=== PATIENT | female | born 1950 | race Caucasian/White ===

== ENCOUNTER 2024-01-16 06:16 | Observation (INO) ==
[2024-01-16] MEDS: NOZIN NASAL SANITIZER TP ONE (06:35)
[2024-01-16] MEDS: LR 1,000 ML IV 1,000 ML IV ONE (06:36)
[2024-01-16 07:11] VITALS: BMI 23.0
[2024-01-16 07:15] LABS: HEMOGLOBIN 12.4 g/dL (12.0-16.0)
[2024-01-16 07:18] LABS: BASOPHILS # (AUTO) 0.1 X10^3/uL (0.0-0.1); BASOPHILS % (AUTO) 1.5 % (0.2-1.0); EOSINOPHILS # (AUTO) 0.3 x10^3/uL (0.0-0.2); EOSINOPHILS % (AUTO) 3.4 % (0.9-2.9); HEMATOCRIT 36.3 % (36.0-47.0); LYMPHOCYTES # (AUTO) 2.1 X10^3/uL (1.3-2.9); LYMPHOCYTES % (AUTO) 25.7 % (21.0-51.0); MEAN CORPUSCULAR HEMOGLOBIN 30.8 pg (27.0-34.0); MEAN CORPUSCULAR HGB CONC 34.1 g/dL (33.0-35.0); MEAN CORPUSCULAR VOLUME 90.1 fL (80.0-100.0); MEAN PLATELET VOLUME 8.5 fL (7.4-11.0); MONOCYTES # (AUTO) 0.6 x10^3/uL (0.3-0.8); MONOCYTES % (AUTO) 7.5 % (0.0-13.0); NEUTROPHILS % (AUTO) 61.9 % (42.0-75.0); PLATELET COUNT 436 X10^3/uL (150.0-450.0); RED BLOOD COUNT 4.03 X10^6/uL (3.5-5.4); RED CELL DISTRIBUTION WIDTH 14.4 % (11.6-16.5); WHITE BLOOD COUNT 8.1 X10^3/uL (3.6-10.0)
[2024-01-16 07:22] LABS: ALANINE AMINOTRANSFERASE 15 Units/L (12-78); ALBUMIN 3.5 g/dL (3.4-5.0); ALKALINE PHOSPHATASE 106 Units/L (46-116); ASPARTATE AMINO TRANSFERASE 17 Units/L (15-37); BLOOD UREA NITROGEN 4 mg/dL (7-18); CARBON DIOXIDE 27.2 mmol/L (21-32); CHLORIDE 100 mmol/L (98-107); CREATININE 0.77 mg/dL (0.55-1.02); GLUCOSE 94 mg/dL (65-99); POTASSIUM 3.9 mmol/L (3.5-5.1); SODIUM 133 mmol/L (136-145); TOTAL PROTEIN 7.9 g/dL (6.4-8.2); eGFR NON BLACK RACES > 60 (>60)
[2024-01-16] MEDS: HEPARIN SODIUM IN D5W 0 UNITS/0 ML BAG ONE (07:26)
[2024-01-16] MEDS: NS 1,000 ML IV 1,000 ML ONE (07:27)
[2024-01-16] MEDS: PEPCID 20 MG VIAL ONE (07:29)
[2024-01-16] MEDS: REGLAN INJ 10 MG VIAL ONE (07:29)
[2024-01-16] MEDS: PRECEDEX INJ VIAL ONE (07:29)
[2024-01-16] MEDS: DIPRIVAN VIAL 20 ML ONE ×2 (07:29)
[2024-01-16] MEDS: TORADOL 30 MG VIAL ONE (07:29)
[2024-01-16] MEDS: OFIRMEV IV 1000 MG VIAL 1,000 MG/100 ML VIAL IV ONE (07:29)
[2024-01-16] MEDS: VERSED ONE (07:29)
[2024-01-16] MEDS: ZOFRAN INJ 4 MG VIAL ONE (07:29)
[2024-01-16] MEDS: DECADRON INJ ONE (07:29)
[2024-01-16] MEDS: FENTANYL VIAL INJ 100 mcg ONE (07:29)
[2024-01-16] MEDS: ANCEF VIAL 1 GRAM ONE (07:32)
[2024-01-16] MEDS: NS 100 ML IV 100 ML ONE (07:32)
[2024-01-16] MEDS: NEO-SYNEPHRINE INJ ONE (07:54)
[2024-01-16] MEDS: MARCAINE 0.5% ONE (08:02)
[2024-01-16] MEDS: HEPARIN SODIUM IN D5W 25,000 UNITS/500 ML BAG ONE (08:22)
[2024-01-16] MEDS: HEPARIN SODIUM INJ 5000 UNITS ONE (08:38)
[2024-01-16] MEDS: PROTAMINE SULFATE 50 MG VIAL ONE (09:20)
[2024-01-16] MEDS ORDERED: KETAMINE HCL ONE (09:29)
[2024-01-16] MEDS ORDERED: XYLOCAINE 2 % (PLAIN) ONE (09:29)
[2024-01-16] MEDS ORDERED: BENADRYL INJ 50 MG VIAL IVP PRN (09:29)
[2024-01-16] MEDS ORDERED: DILAUDID INJ IVP PRN (09:29)
[2024-01-16] MEDS ORDERED: ZOFRAN INJ 4 MG VIAL IVP PRN (09:29)
[2024-01-16] MEDS: EPHEDRINE SULFATE INJ ONE (09:55)
[2024-01-16] MEDS: HESPAN IV IN NS 500 ML IV ONE (10:00)
--- NOTE | 2024-01-16 10:09 | OR.IMMED ---
IMMEDIATE POST-OP NOTE Immediate Post-Op Note Date of surgery/procedure: 01/16/24 Pre-Op Diagnosis: Critical ischemia right leg, right iliac artery occlusion , recent left iliac artery stenting Post-Op Diagnosis: same Procedure: femoral femoral bypass Surgeon/Substance Abuse Clinician: Román Findings: as above Estimated Blood Loss: 150 cc Complications: none Progress Notes: to floor, begin home meds and diet, pain control
[2024-01-16] MEDS: PERCOCET TAB 5/325 MG PO PRN (11:29)
[2024-01-16] MEDS: Atrovent NEB TX 0.02% NEB SCH (13:10)
[2024-01-16] MEDS: LR 1,000 ML IV 1,000 ML IV SCH (13:47)
[2024-01-16 15:21] VITALS: RESP 20
[2024-01-16] MEDS: XARELTO PO SCH (20:30)
[2024-01-16] MEDS: CATAPRES TAB 0.1 MG PO SCH (20:30)
[2024-01-17] MEDS: COZAAR PO SCH (08:19)
[2024-01-17] MEDS: ASPIRIN EC 81 MG PO SCH (08:20)
[2024-01-17] MEDS: LIPITOR TAB 40 MG PO SCH (08:20)
[2024-01-17] MEDS: ZETIA TAB 10 MG PO SCH (08:20)
[2024-01-17] MEDS: PROTONIX TAB 40 MG PO SCH (08:20)
[2024-01-17] MEDS: NICOTINE PATCH TD SCH (08:21)
[2024-01-17 12:09] VITALS: BP 111/57; PULSE 87; TEMP 97.6; O2SAT 90
--- NOTE | 2024-01-17 16:03 | W.DIS.FURT ---
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 Recently failed to get across the right common iliac artery occlusion but the left external iliac artery stenosis was stented. Admitted for observation of after open femoral femoral bypass performed yesterday. The patient has done well after fem-fem bypass with resolution of rest pain to the right leg with biphasic doppler signals at each ankle. The incisions in each groin are clean and dry. She be discharged home on her usual medications ,plus Percocet , 5 milligram tablets, 1 every 6 hours PRN pain , number 30. I have encouraged her not to smoke. She follow up with me in 1 week. Vital Signs: Vital Signs (72 hours) 01/16/24 06:59 01/16/24 06:50 01/16/24 07:29 Temperature Pulse Rate 90 Pulse Rate [Brachial] Respiratory Rate 18 16 Blood Pressure 195/89 Blood Pressure [Left Radial Artery] O2 Sat by Pulse Oximetry 98 Oxygen Delivery Method Room Air Room Air Oxygen Flow Rate FIO2% 01/16/24 09:38 01/16/24 09:48 01/16/24 09:53 Temperature 98.2 F Pulse Rate 70 67 67 Pulse Rate [Brachial] Respiratory Rate 16 17 16 Blood Pressure 97/54 102/53 69/45 Blood Pressure [Left Radial Artery] O2 Sat by Pulse Oximetry 97 98 98 Oxygen Delivery Method Nasal Cannula Nasal Cannula Nasal Cannula Oxygen Flow Rate FIO2% 01/16/24 09:43 01/16/24 09:54 01/16/24 09:55 Temperature Pulse Rate 70 80 82 Pulse Rate [Brachial] Respiratory Rate 16 16 17 Blood Pressure 114/58 79/47 71/41 Blood Pressure [Left Radial Artery] O2 Sat by Pulse Oximetry 98 96 96 Oxygen Delivery Method Nasal Cannula Nasal Cannula Nasal Cannula Oxygen Flow Rate FIO2% 01/16/24 10:00 01/16/24 10:05 01/16/24 10:10 Temperature Pulse Rate 79 100 H 99 H Pulse Rate [Brachial] Respiratory Rate 17 18 18 Blood Pressure 196/91 200/86 199/84 Blood Pressure [Left Radial Artery] O2 Sat by Pulse Oximetry 97 97 98 Oxygen Delivery Method Nasal Cannula Nasal Cannula Nasal Cannula Oxygen Flow Rate FIO2% 01/16/24 10:15 01/16/24 10:20 01/16/24 10:25 Temperature Pulse Rate 103 H 101 H 101 H Pulse Rate [Brachial] Respiratory Rate 17 17 17 Blood Pressure 178/79 169/76 161/72 Blood Pressure [Left Radial Artery] O2 Sat by Pulse Oximetry 97 98 97 Oxygen Delivery Method Nasal Cannula Nasal Cannula Nasal Cannula Oxygen Flow Rate FIO2% 01/16/24 10:30 01/16/24 10:35 01/16/24 11:29 Temperature Pulse Rate 105 H 100 H Pulse Rate [Brachial] Respiratory Rate 17 18 18 Blood Pressure 156/72 154/70 Blood Pressure [Left Radial Artery] O2 Sat by Pulse Oximetry 97 98 Oxygen Delivery Method Nasal Cannula Nasal Cannula Oxygen Flow Rate FIO2% 01/16/24 12:29 01/16/24 12:37 01/16/24 13:17 Temperature Pulse Rate 78 Pulse Rate [Brachial] Respiratory Rate 18 Blood Pressure Blood Pressure [Left Radial Artery] O2 Sat by Pulse Oximetry 98 Oxygen Delivery Method Nasal Cannula Oxygen Flow Rate 2 FIO2% 01/16/24 10:45 01/16/24 11:00 01/16/24 11:15 Temperature 97.6 F 97.6 F 97.6 F Pulse Rate Pulse Rate [Brachial] 110 H 105 H 105 H Respiratory Rate 18 18 20 Blood Pressure Blood Pressure [Left Radial Artery] 137/81 137/81 143/72 O2 Sat by Pulse Oximetry 97 97 99 Oxygen Delivery Method Oxygen Flow Rate FIO2% 01/16/24 11:30 01/16/24 11:45 01/16/24 12:45 Temperature 97.0 F L 97.0 F L Pulse Rate Pulse Rate [Brachial] 105 H 101 H 101 H Respiratory Rate 18 18 18 Blood Pressure Blood Pressure [Left Radial Artery] 136/65 153/67 145/69 O2 Sat by Pulse Oximetry 99 98 98 Oxygen Delivery Method Oxygen Flow Rate FIO2% 01/16/24 13:45 01/16/24 14:45 01/16/24 12:00 Temperature 97.0 F L 97.0 F L Pulse Rate Pulse Rate [Brachial] 101 H 107 H 101 H Respiratory Rate 19 18 18 Blood Pressure Blood Pressure [Left Radial Artery] 142/68 131/62 153/67 O2 Sat by Pulse Oximetry 97 98 98 Oxygen Delivery Method Nasal Cannula Oxygen Flow Rate 2 FIO2% 01/16/24 13:29 01/16/24 15:51 01/16/24 16:00 Temperature 97.0 F L 98.1 F Pulse Rate Pulse Rate [Brachial] 108 H 102 H Respiratory Rate 18 20 20 Blood Pressure Blood Pressure [Left Radial Artery] 132/62 124/58 O2 Sat by Pulse Oximetry 99 96 Oxygen Delivery Method Nasal Cannula Oxygen Flow Rate 2 FIO2% 01/16/24 20:08 01/16/24 20:10 01/16/24 20:00 Temperature 98.0 F Pulse Rate 97 H Pulse Rate [Brachial] 95 H Respiratory Rate 20 Blood Pressure Blood Pressure [Left Radial Artery] 139/66 O2 Sat by Pulse Oximetry 94 L 94 L Oxygen Delivery Method Nasal Cannula Nasal Cannula Oxygen Flow Rate 2 2 FIO2% 28 01/16/24 19:00 01/16/24 23:48 01/17/24 04:00 Temperature 97.9 F 98.4 F Pulse Rate Pulse Rate [Brachial] 91 H 88 Respiratory Rate 20 20 Blood Pressure Blood Pressure [Left Radial Artery] 118/56 126/65 O2 Sat by Pulse Oximetry 94 L 98 Oxygen Delivery Method Room Air Nasal Cannula Room Air Oxygen Flow Rate 2 FIO2% 01/17/24 06:09 01/17/24 07:00 01/17/24 08:00 Temperature Pulse Rate 87 Pulse Rate [Brachial] Respiratory Rate Blood Pressure Blood Pressure [Left Radial Artery] O2 Sat by Pulse Oximetry 98 Oxygen Delivery Method Room Air Room Air Oxygen Flow Rate 2 FIO2% 28 01/17/24 08:00 01/17/24 08:30 01/17/24 12:00 Temperature 98.6 F 97.6 F Pulse Rate Pulse Rate [Brachial] 95 H 87 Respiratory Rate 20 20 20 Blood Pressure Blood Pressure [Left Radial Artery] 145/65 111/57 O2 Sat by Pulse Oximetry 90 L 95 90 L Oxygen Delivery Method Room Air Room Air Room Air Oxygen Flow Rate FIO2% Labs: Laboratory Last Values WBC 8.1 X10^3/uL (3.6-10.0) 01/16/24 07:02 RBC 4.03 X10^6/uL (3.5-5.4) 01/16/24 07:02 Hgb 12.4 g/dL (12.0-16.0) 01/16/24 07:02 Hct 36.3 % (36.0-47.0) 01/16/24 07:02 MCV 90.1 fL (80.0-100.0) 01/16/24 07:02 MCH 30.8 pg (27.0-34.0) 01/16/24 07:02 MCHC 34.1 g/dL (33.0-35.0) 01/16/24 07:02 RDW 14.4 % (11.6-16.5) 01/16/24 07:02 Plt Count 436 X10^3/uL (150.0-450.0) 01/16/24 07:02 MPV 8.5 fL (7.4-11.0) 01/16/24 07:02 Neut % (Auto) 61.9 % (42.0-75.0) 01/16/24 07:02 Lymph % (Auto) 25.7 % (21.0-51.0) 01/16/24 07:02 Johnston % (Auto) 7.5 % (0.0-13.0) 01/16/24 07:02 Eos % (Auto) 3.4 % (0.9-2.9) H 01/16/24 07:02 Baso % (Auto) 1.5 % (0.2-1.0) H 01/16/24 07:02 Neut # (Auto) 5.0 x10^3/uL (2.2-4.8) H 01/16/24 07:02 Lymph # (Auto) 2.1 X10^3/uL (1.3-2.9) 01/16/24 07:02 Johnston # (Auto) 0.6 x10^3/uL (0.3-0.8) 01/16/24 07:02 Eos # (Auto) 0.3 x10^3/uL (0.0-0.2) H 01/16/24 07:02 Baso # (Auto) 0.1 X10^3/uL (0.0-0.1) 01/16/24 07:02 Absolute Nucleated RBC 0.1 /100WBC 01/16/24 07:02 Sodium 133 mmol/L (136-145) L 01/16/24 07:02 Corrected Sodium TNP 01/16/24 07:02 Potassium 3.9 mmol/L (3.5-5.1) 01/16/24 07:02 Chloride 100 mmol/L (98-107) 01/16/24 07:02 Carbon Dioxide 27.2 mmol/L (21-32) 01/16/24 07:02 BUN 4 mg/dL (7-18) L 01/16/24 07:02 Creatinine 0.77 mg/dL (0.55-1.02) 01/16/24 07:02 Est GFR (MDRD) Af Amer > 60 (>60) 01/16/24 07:02 Est GFR (MDRD) Non-Af > 60 (>60) 01/16/24 07:02 Glucose 94 mg/dL (65-99) 01/16/24 07:02 Calcium 9.0 mg/dL (8.5-10.1) 01/16/24 07:02 Corrected Calcium TNP 01/16/24 07:02 Total Bilirubin 0.60 mg/dL (0.2-1.0) 01/16/24 07:02 AST 17 Units/L (15-37) 01/16/24 07:02 ALT 15 Units/L (12-78) 01/16/24 07:02 Alkaline Phosphatase 106 Units/L (46-116) 01/16/24 07:02 Total Protein 7.9 g/dL (6.4-8.2) 01/16/24 07:02 Albumin 3.5 g/dL (3.4-5.0) 01/16/24 07:02 Globulin 4.4 g/dL (2.5-4.5) 01/16/24 07:02 Albumin/Globulin Ratio 0.8 Ratio (1.1-2.1) L 01/16/24 07:02 Blood Type A POSITIVE 01/16/24 07:12 Antibody Screen Negative 01/16/24 07:12 Reason For Visit: FEMOROFEMORAL BYPASS Discharge Date Discharge Date: 01/17/24 Discharge Diagnosis All Active Problems (Updated 01/17/24 @ 16:01 by Wyatt France) 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 Pt is to keep follow up appointment as instructed and take medications as ordered. Discharge Medications Discharge Medications: codeine Allergy (Intermediate, Verified 12/31/23 08:01) NAUSEA CONTINUE taking the following medications atorvastatin 40 mg tablet 40 mg PO QPM 01/17/24 [History] ezetimibe 10 mg tablet 10 mg PO QDAY 01/17/24 [History] losartan 50 mg tablet 50 mg PO QDAY 01/17/24 [History] omeprazole 40 mg capsule,delayed release 40 mg PO DAILY 01/17/24 [History] tiotropium bromide 18 mcg capsule with inhalation device (Spiriva with HandiHaler) 18 mcg inhalation QDAY 01/17/24 [History] Percocet, 5mg tablet, 1 po q 6 HR PRN pain Discharge Disposition Assessment: see hospital course Discharge Plan Discharge Plan Hospital Course: 73 yo female with 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 Recently failed to get across the right common iliac artery occlusion but the left external iliac artery stenosis was stented. Admitted for observation of after open femoral femoral bypass performed yesterday. The patient has done well after fem-fem bypass with resolution of rest pain to the right leg with biphasic doppler signals at each ankle. The incisions in each groin are clean and dry. She be discharged home on her usual medications ,plus Percocet , 5 milligram tablets, 1 every 6 hours PRN pain , number 30. I have encouraged her not to smoke. She follow up with me in 1 week. Patient Disposition: 01 HOME, SELF-CARE Condition: Stable Health Concerns: Post Hospitalization: new medications and changes needed to prevent readmission or further decline. Pt educated and given instructions on all concerns. Care Plan Goals: Problem: Pain/Alteration in Comfort Goal: Improve/ Resolve Pain; Achieve Pain Tolerance Instructions: Take pain medications as prescribed. Contact your primary care provider if your pain is unrelieved or worsens. Follow up with primary care provider as directed. Plan of Treatment: Continue with present treatment and follow up plan. Pt is to keep follow up appointment as instructed and take medications as ordered. Assessment: see hospital course Prescriptions: New oxycodone-acetaminophen [Percocet] 5-325 mg tablet 1 tab PO Q6H MDD 4 PRNQty: 30 0RF Continued losartan 50 mg tablet 50 mg PO QDAY atorvastatin 40 mg tablet 40 mg PO QPM ezetimibe 10 mg tablet 10 mg PO QDAY tiotropium bromide [Spiriva with HandiHaler] 18 mcg capsule, w/inhalation device 18 mcg INHALATION QDAY omeprazole 40 mg Capsule,Delayed Release(Dr/Ec) 40 mg PO DAILY Orders to Discharge Patient Discharge Orders: Discharge (Routine); Ordered 01/17/24 Ordered By: Wyatt France Follow ups/Referrals Follow ups/Referrals: Wyatt France [STAFF PHYSICIAN] - 01/29/24 3:45 pm Instructions Instructions: Fall Prevention in the Home, Adult, [id number], Femorofemoral Bypass, Care After, Femorofemoral Bypass Activity Restrictions/Additional Instructions: Dr. France stated he will send needed medications to pharmacy Stand Alone Forms: Post Hospital Follow Up Care
--- NOTE | 2024-01-19 09:35 | DR.OPNOTE ---
OP NOTE Pre-Op Diagnosis: Critical ischemia right leg Post-Op Diagnosis: same Procedure Date Date Of Procedure: 01/16/24 Procedure: PROCEDURE : Femoral femoral bypass NARRATIVE : This is a patient with complete occlusion of the right common iliac artery and severe disease of the left iliac artery. In the recent past I was unable to get a wire across the occlusion of the right side but was able to stent the left iliac artery. Today's procedure is a femoral femoral bypass to reestablish flow to the right leg. The patient was taken to the operative suite and placed in the supine position. the patient was given IV sedation supervised by myself. Timeout for the procedure obtained. The skin of the left groin infiltrated with 0.5% Marcaine and a vertical 5 centimeter incision made with a #15 knife blace . Sharp dissection was carried down with electrocautery and then with Metzenbaum scissor identifying the left common femoral artery , dissecting out the common femoral artery, superficial femoral artery and profunda femoris artery. Vesssel loops placed on all of these arteries. Identical dissection carried out on the right side with vessel loops placed on all the branches . A 6 millimeter Gortex graft was tunneled between these 2 incisions over top of the pubic bone in the subcutaneous tissue. Patient given 5,000 units of IV Heparin. After 3 minutes the left sided arteries were clamped and occluded. They left common femoral artery opened with a number 11 knife blade and Pott's scissors. The graft fashioned for anastomosis and an anastomosis was carried out with running 5-0 Prolene suture . On teleasing the clamps there was very little leaking from the anastomosis . The graft clamped. The graft pulled to length and the arteries of the right side clamped . The left common femoral artery opened with a number 11 knife and Pott's scissors. The graft fashioned for anastastomosis and the anastomosis carried out with running 500 Prolene suture Flow was reestablished by releasing the clamps. Patient had bleeding from needle holes of both groins requiring only Surgicel for hemostasis . The heparin was reversed with 20 milligrams of IV Protamine . Once no further bleeding was noted from either groin, each groin closed with 2 running layers of 3-0 Vicryl and the skin closed with skin [place]. Patient tolerated this procedure very well. Good doppler signal at the ankles of both legs at the end of the case. Findings: occluded right common iliac artery artery,good pulse in the left femoral artery Type of Fluids Used:: Lactated Ringers EBL: < 200 cc Hardware: 6 millimeter Gortex graft Complications:: none Needle/Sponge Count:: correct Disposition/Condition: Pt. tolerated procedure without difficulty. Patient taken to the floor in stable condition.
== END 2024-01-17 13:45 | disposition home or self-care (01) ==
LOC: EDACCT# → MED/SURG 06:16 → INTOOBSV 06:16
PROVIDERS: ADMIT Surgery; ATTEND Surgery
DX: I70.92 Chronic total occlusion of artery of the extremities; I70.221 Atherosclerosis of native arteries of extremities with rest pain, right leg; Z72.0 Tobacco use; E78.5 Hyperlipidemia, unspecified; J44.9 Chronic obstructive pulmonary disease, unspecified; I10 Essential (primary) hypertension; K21.9 Gastro-esophageal reflux disease without esophagitis